=== PATIENT | female | born 1990 | race African-American/Black ===

== ENCOUNTER 2016-11-21 13:12 | Emergency (ER) | payer MEDICAID ==
[~2016-11-21] VITALS: Ht 172.7 cm; Wt 61.0 kg
[~2016-11-21 13:12] MED LIST: PREN-88 PO
[2016-11-21 13:41] VITALS: BP 115/71
== END 2016-11-21 18:09 | disposition home or self-care (01) ==
LOC: ER 15:14
DX: J02.9 Acute pharyngitis, unspecified (principal); R06.02 Shortness of breath; K92.0 Hematemesis
CPT/HCPCS: 99283

== ENCOUNTER 2019-03-01 13:04 | Emergency (ER) | payer MEDICAID ==
[~2019-03-01] VITALS: Ht 167.6 cm; Wt 55.0 kg
[2019-03-01 13:40] VITALS: BP 116/73
[2019-03-01 15:30] LABS: CLARITY URINE CLEAR (CLEAR); COLOR URINE YELLOW (YELLOW); KETONES URINE NEGATIVE (NEGATIVE); LEUKOCYTE ESTERASE URINE 1+ (NEGATIVE); NITRITE URINE NEGATIVE (NEGATIVE); OCCULT BLOOD URINE 2+ (NEGATIVE); PROTEIN URINE NEGATIVE (NEGATIVE); SPECIFIC GRAVITY URINE 1.021 (1.005-1.030); UROBILINOGEN URINE 0.2 E.U./dL (0.2-1.0)
== END 2019-03-01 15:59 | disposition home or self-care (01) ==
LOC: ER 13:04
DX: N39.0 Urinary tract infection, site not specified (principal)
CPT/HCPCS: 81003; 81025; 99283

== ENCOUNTER 2020-08-20 16:47 | Emergency (ER) | payer MEDICAID ==
[~2020-08-20] VITALS: Ht 170.2 cm; Wt 63.0 kg
[2020-08-20] MEDS ORDERED: AMOXICILLIN/POTASSIUM CLAVULANATE 875/125MG TAB PO ONE (18:30)
[2020-08-20] MEDS ORDERED: ACETAMINOPHEN 325MG TABLET PO ONE (18:30)
[2020-08-20] MEDS ORDERED: IBUPROFEN 400MG TABLET PO ONE (18:30)
[2020-08-20] MEDS ORDERED: AMOX-424 MT (19:27)
[2020-08-20 19:40] VITALS: BP 134/79
== END 2020-08-20 19:44 | disposition home or self-care (01) ==
LOC: ER 16:55
DX: K02.9 Dental caries, unspecified (principal)
CPT/HCPCS: 99284

== ENCOUNTER 2021-04-27 11:41 | Emergency (ER) | payer MEDICAID ==
[~2021-04-27] VITALS: Ht 170.2 cm; Wt 82.0 kg
[~2021-04-27 11:41] MED LIST changes: +AMOX-424 MT
[2021-04-27 12:00] VITALS: BP 122/70
[2021-04-27] MEDS ORDERED: NITR-87 MT (13:02)
[2021-04-27 13:28] LABS: CLARITY URINE CLOUDY (CLEAR); COLOR URINE YELLOW (YELLOW); KETONES URINE NEGATIVE (NEGATIVE); LEUKOCYTE ESTERASE URINE 3+ (NEGATIVE); NITRITE URINE NEGATIVE (NEGATIVE); OCCULT BLOOD URINE 1+ (NEGATIVE); PH URINE 6.5 (4.5-8.0); PROTEIN URINE NEGATIVE (NEGATIVE); SPECIFIC GRAVITY URINE 1.012 (1.005-1.030)
[2021-04-27] MEDS ORDERED: DOXY100C5 MT (14:18)
[2021-04-27] MEDS ORDERED: METRONIDAZOLE 500MG TABLET PO ONE (14:30)
[2021-04-27] MEDS ORDERED: CEFTRIAXONE SODIUM 500 MG/VIAL IM ONE (14:30)
[2021-04-27] MEDS ORDERED: LIDOCAINE HCL 1% 20ML VIAL (Pyxis) INJ INFIL ONE (14:30)
[2021-04-30 06:12] LABS: NEISSERIA GONORRHOEAE NAA Negative (Negative)
== END 2021-04-27 15:15 | disposition home or self-care (01) ==
LOC: ER 11:41
DX: N39.0 Urinary tract infection, site not specified (principal); A59.9 Trichomoniasis, unspecified; Z79.899 Other long term (current) drug therapy
CPT/HCPCS: 81003; 81025; 87086; 87491; 87591; 96372; 99283; J0696; J3490

== ENCOUNTER 2022-08-06 11:00 | Emergency (ER) | payer MEDICAID ==
[~2022-08-06] VITALS: Ht 175.3 cm; Wt 66.0 kg
[~2022-08-06 11:00] MED LIST changes: +DOXY100C5 MT; +NITR-87 MT
[2022-08-06 11:08] VITALS: BP 104/64
[2022-08-06] MEDS ORDERED: ONDANSETRON HCL 4MG/2ML INJ IV STA (11:32)
[2022-08-06] MEDS ORDERED: FAMOTIDINE 20MG/2ML VIAL IV STA (11:32)
[2022-08-06] MEDS ORDERED: SODIUM CHLORIDE 0.9% 1,000 ML IV ONE (11:45)
[2022-08-06 11:58] LABS: BASOPHILS % 0.5 % (0.0-2.0); EOSINOPHILS % 1.4 % (0.0-5.0); HEMATOCRIT. 39.9 % (36.0-48.0); HEMOGLOBIN. 13.2 g/dL (12.0-16.0); LYMPHOCYTES % 16.3 % (20.0-50.0); MEAN CORPUSCULAR HEMOGLOBIN 29.7 pg (28.0-32.0); MEAN CORPUSCULAR VOLUME 89.7 fL (81.0-99.0); MEAN PLATELET VOLUME 7.9 fl (7.4-10.4); MONOCYTES % 7.7 % (2.0-8.0); NEUTROPHILS % 74.1 % (40.0-76.0); PLATELET 296 x1000/uL (130-400); RED BLOOD CELL COUNT 4.45 mill/uL (4.2-5.4); RED CELL DISTRIBUTION WIDTH 14.2 % (11.6-14.6)
[2022-08-06 12:06] LABS: CHLORIDE 109 mEq/L (98-107)
[2022-08-06 12:07] LABS: PROTHROMBIN TIME 11.1 sec (9.6-11.0)
[2022-08-06 12:13] LABS: HCG SCREEN NEGATIVE
[2022-08-06 12:24] LABS: CLARITY URINE CLOUDY (CLEAR); COLOR URINE YELLOW (YELLOW); KETONES URINE NEGATIVE (NEGATIVE); LEUKOCYTE ESTERASE URINE NEGATIVE (NEGATIVE); NITRITE URINE NEGATIVE (NEGATIVE); OCCULT BLOOD URINE NEGATIVE (NEGATIVE); PROTEIN URINE TRACE (NEGATIVE); SPECIFIC GRAVITY URINE 1.023 (1.005-1.030)
== END 2022-08-06 12:54 | disposition home or self-care (01) ==
LOC: ER 11:00
DX: R10.9 Unspecified abdominal pain (principal)
CPT/HCPCS: 36415; 80053; 81003; 81025; 83690; 84703; 85025; 85610; 96361; 96374; 96375; 99284; J2405; J3490; J7030

== ENCOUNTER 2023-10-08 15:31 | Emergency (ER) | payer MEDICAID ==
[~2023-10-08] VITALS: Ht 170.2 cm; Wt 66.2 kg
[2023-10-08 15:51] VITALS: O2SAT 100
[2023-10-08] MEDS ORDERED: AMOX-494 MT (18:37)
[2023-10-08] MEDS ORDERED: TOPUD MT (18:37)
[2023-10-08] MEDS ORDERED: IBUP-1523 MT (18:37)
[2023-10-08 18:50] VITALS: BP 126/79; PULSE 92; RESP 18; TEMP 98.7
== END 2023-10-08 19:00 | disposition home or self-care (01) ==
LOC: ER 16:12
DX: J02.9 Acute pharyngitis, unspecified (principal)
CPT/HCPCS: 81025; 99283